=== PATIENT | male | born 1980 | race Two or more races ===

== ENCOUNTER 2016-11-15 04:03 | Emergency (ER) | payer SELFPAY ==
[2016-11-15 05:49] VITALS: BP 126/77
== END 2016-11-15 05:49 | disposition home or self-care (01) ==
LOC: ED 04:03
DX: S63.501A Unspecified sprain of right wrist, initial encounter (principal); W18.30XA Fall on same level, unspecified, initial encounter; Y93.67 Activity, basketball; Y92.89 Other specified places as the place of occurrence of the external cause; Y99.8 Other external cause status
CPT/HCPCS: J1885